=== PATIENT | female | born 1975 | race Caucasian/White ===

== ENCOUNTER 2017-05-23 14:25 | Emergency (ER) | payer OTHER ==
[~2017-05-23] VITALS: Ht 162.6 cm; Wt 81.6 kg
[2017-05-23 14:40] VITALS: Ht 162.6 cm; Wt 81.6 kg
[2017-05-23 15:59] VITALS: BP 117/83
== END 2017-05-23 15:59 | disposition home or self-care (01) ==
LOC: ED 14:25
DX: J20.9 Acute bronchitis, unspecified (principal); B37.9 Candidiasis, unspecified